=== PATIENT | female | born 1975 | race Caucasian/White ===

== ENCOUNTER 2016-12-28 13:49 | Inpatient (IN) | payer SELFPAY ==
[~2016-12-28] VITALS: Ht 165.1 cm; Wt 95.0 kg
[~2016-12-28 13:49] MED LIST: HYDR-3363 PO; NEUR300C PO; PROZ10CA7 PO
[2016-12-28 15:06] LABS: MEAN CORPUSCULAR HEMOGLOBIN 28.9 pg (27.0-33.0); MEAN CORPUSCULAR HGB CONC 33.9 g/dl (32.0-36.5); MEAN CORPUSCULAR VOLUME 85.4 fl (80.0-96.0); PLATELET COUNT, AUTOMATED 255 10^3/uL (150-450); RED CELL DISTRIBUTION WIDTH 13.1 % (11.5-14.5); WHITE BLOOD COUNT 5.5 10^3/uL (4.0-10.0)
[2016-12-28 15:25] LABS: CONTROL LINE HCG INT CTR LINE PRESENT
[2016-12-28 15:41] LABS: ALBUMIN 3.3 GM/DL (3.2-5.2); ALBUMIN/GLOBULIN RATIO 1.18 (1.00-1.93); ALKALINE PHOSPHATASE 79 U/L (45-117); ALT/SGPT 11 U/L (12-78); ANION GAP 5 MEQ/L (8-16); AST/SGOT 11 U/L (7-37); BILIRUBIN,DIRECT < 0.1 MG/DL (0.0-0.2); BILIRUBIN,TOTAL 0.2 MG/DL (0.2-1.0); BLOOD UREA NITROGEN 12 MG/DL (7-18); CALCIUM LEVEL 8.1 MG/DL (8.5-10.1); CARBON DIOXIDE LEVEL 29 MEQ/L (21-32); CHLORIDE LEVEL 112 MEQ/L (98-107); CREATININE FOR GFR 0.72 MG/DL (0.55-1.02); GLOMERULAR FILTRATION RATE > 60.0 (>58); GLUCOSE, FASTING 84 MG/DL (70-105); POTASSIUM SERUM 4.1 MEQ/L (3.5-5.1); SODIUM LEVEL 146 MEQ/L (136-145); TOTAL PROTEIN 6.1 GM/DL (6.4-8.2)
[2016-12-28 16:08] LABS: METHADONE URINE NEGATIVE (NEGATIVE)
[2016-12-28] MEDS ORDERED: MAALOX 30 ML SUSP *UDC PO PRN (18:30)
[2016-12-28] MEDS ORDERED: MOM 30ML SUSPENSION UDC PO PRN (18:30)
[2016-12-28 22:26] VITALS: BP 118/60
[2016-12-29 07:20] VITALS: BP 111/59
--- NOTE | 2016-12-29 09:20 | HPEPDOC ---
[facility] Medical History & Physical Date of Admission Dec 28, 2016 History and Physical PCP: None ATTENDING: Dr. Genaro Estrella HPI: 41yoF admitted to [facility] for unspecified depressive disorder, being medically examined today. No acute medical complaints today. Denies any fevers, chills, weakness, fatigue, CARTAGENA, CP, SOB, cough, palpitations, abdominal pain, N/V /D or changes in bowel or bladder habits. PMHx: History of hepatitis C, Dr Amor in past. Status post treatment 2009. Hypothyroidism Chronic back pain Bipolar disorder PTSD Anxiety Depression Chronic migraine headache PSHX: Tubal ligation History of thyroid nodules/thyroid nodule FNA. Olga Lidia. Liver biopsy Cholecystectomy Basal cell CA removed from left face SOCHX: Resides in: [facility] Marital Status: Kids: 5 Employment: Unemployed Tobacco use: One pack per day ETOH: Denies Illicit Drugs: Patient states has used "anything I could get my hands on" over the years. Currently marijuana daily. Cocaine and crystal meth on and off. IV Drug Use: States in the past. Tattoos done unprofessionally: Denies FAMHX: Mother: Unknown Father: Unknown Siblings: One brother Alive, well Children: Alive, well Unexpected deaths due to medical reasons: None. ROS: As noted in HPI, otherwise 11pt ROS of systems reviewed and remarkable only for LMP 12/24/16. PE: GEN: 41 yo F, appears stated age. Well-nourished, well developed. No acute distress. Alert and oriented x 3. Pleasant, interactive. HEENT: Normocephalic, atraumatic. Pupils are equal, round, and reactive to light. Extraocular movements are intact. No nystagmus appreciated. Sclera are nonicteric. Conjunctiva without injection. Nose midline. Nasal turbinates without bogginess. EACs both patent BL. TMs both visualized and heard with good cone of light, no bulging or erythema. No facial asymmetry. Moist mucous membranes. Dentition fair. Pharynx pink and moist, no cobblestoning. Neck supple , trachea midline. No lymphadenopathy or thyromegaly appreciated. CHEST: Regular rate and rhythm, +S1, +S2 LUNGS: Clear to auscultation bilaterally. No wheezes, rales, or rhonchi. Breathing appears symmetric and easy. Patient is speaking in full sentences. No accessory muscle use. ABD: Round, soft, non-tender, non-distended. +Bowel sounds throughout. No rebound or guarding. No costovertebral angle tenderness. EXT: Pulses 2+ bilaterally dorsalis pedis and radial. No lower extremity edema appreciated. SKIN: [place], dry, warm. Capillary refill <2sec. No rashes. NEURO: Alert and oriented x 3. Cranial nerves III-XII are intact. No focal deficits appreciated. EKG: pending. A&P: 41yoF admitted to [facility] for unspecified depressive disorder 1. Psych. Plan per Psychiatry. Obtain baseline EKG to assure the safety of psychiatric medications as they can prolong the QT interval. 2. Nicotine dependence. Patch available. 3. History of IVDU. Patient agrees to HIV and hepatitis screening. 4. Follow up. No Primary Care Provider. Will attempt to establish PCP on discharge. 5. Substance use. Per psychiatry. 6. Hypernatremia. Sodium is noted to be 146. Recheck BMP. 7. Staff member Marjan Greco present throughout exam. Vital Signs Vital Signs Date Time Temp Pulse Resp B/P (MAP) Pulse Ox O2 Delivery O2 Flow Rate FiO2 12/29/16 07:20 97.5 65 16 111/59 (76) 12/28/16 22:26 Room Air 12/28/16 21:43 99 Laboratory Data Labs 24H Laboratory Tests 2 12/28/16 14:45: Urine Amphetamines Screen POSITIVEH, Urine Benzodiazepines Screen NEGATIVE, Urine Opiates Screen NEGATIVE, Urine Methadone Screen NEGATIVE, Urine Barbiturates Screen NEGATIVE, Urine Phencyclidine Screen NEGATIVE, Urine Cocaine Metabolite Screen POSITIVEH, Urine Cannabinoids Screen POSITIVEH 12/28/16 14:50: Nucleated Red Blood Cells % (auto) 0.0, Anion Gap 5L, Glomerular Filtration Rate > 60.0, Calcium Level 8.1L, Aspartate Amino Transf (AST/SGOT) 11, Alanine Aminotransferase (ALT/SGPT) 11L, Alkaline Phosphatase 79, Total Bilirubin 0.2, Direct Bilirubin < 0.1, Total Protein 6.1L, Albumin 3.3, Albumin/Globulin Ratio 1.18, Thyroid Stimulating Hormone (TSH) 1.490, Human Chorionic Gonadotropin, Qual NEGATIVE, Salicylates Level < 1.7L, Acetaminophen Level < 2.0L, Ethyl Alcohol Level < 0.003 CBC/BMP Laboratory Tests 12/28/16 14:50 Red Blood Count 4.25, Mean Corpuscular Volume 85.4, Mean Corpuscular Hemoglobin 28.9, Mean Corpuscular Hemoglobin Concent 33.9, Red Cell Distribution Width 13.1 Home Medications No Active Prescriptions or Reported Meds Allergies Coded Allergies: No Known Allergies (Verified Allergy, Unknown, 12/30/05) Amelia López Dec 29, 2016 09:20
[2016-12-29] MEDS: OXcarbazepine 150 MG TAB PO SCH ×2 (13:14→20:28)
[2016-12-29] MEDS: SERTRALINE HCL 25 MG TABLET PO SCH (13:15)
[2016-12-29] MEDS: lamoTRIgine 25 MG TAB PO SCH ×2 (13:15→20:28)
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
[2016-12-29 18:00] VITALS: BP 93/56
[2016-12-29] MEDS: traZODone 50 MG TAB PO PRN (20:28)
--- NOTE | 2016-12-29 21:38 | ECGEPIP ---
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
[2016-12-30 06:59] VITALS: BP 111/66
[2016-12-30 07:44] LABS: ANION GAP 5 MEQ/L (8-16); BLOOD UREA NITROGEN 11 MG/DL (7-18); CALCIUM LEVEL 8.4 MG/DL (8.5-10.1); CARBON DIOXIDE LEVEL 30 MEQ/L (21-32); CHLORIDE LEVEL 108 MEQ/L (98-107); GLOMERULAR FILTRATION RATE > 60.0 (>58); GLUCOSE, FASTING 82 MG/DL (70-105); POTASSIUM SERUM 4.2 MEQ/L (3.5-5.1); SODIUM LEVEL 143 MEQ/L (136-145)
[2016-12-30] MEDS ORDERED: INFLUENZA QUADRIVALENT PF VACCINE 0.5ML SYRINGE (90686) IM ONE (09:00)
[2016-12-30] MEDS: SERTRALINE HCL 25 MG TABLET PO SCH (09:23)
[2016-12-30] MEDS: lamoTRIgine 25 MG TAB PO SCH ×2 (09:23→21:48)
[2016-12-30] MEDS: OXcarbazepine 150 MG TAB PO SCH ×2 (09:24→21:48)
--- NOTE | 2016-12-30 17:53 | MHIPN ---
DATE: 12/30/2016 HISTORY: 41-year-old female with history of bipolar disorder and posttraumatic stress disorder (PTSD) admitted for treatment of depression and suicidal ideation. MEDICATIONS: - Trileptal 75 mg by mouth twice a day - Lamictal 25 mg by mouth twice a day - Zoloft 25 mg by mouth every morning - trazodone 50 mg by mouth nightly as needed for insomnia SUBJECTIVE: "I'm feeling about the same." OBJECTIVE: Patient continues depressed with psychomotor retardation, sad restricted facial expression, interacts minimally with other patients and staff. There is no evidence of psychotic symptoms, no auditory or visual hallucinations or delusions. MENTAL STATUS EXAMINATION: Patient is dressed in [facility]. Patient is cooperative, has fair eye contact. Her speech is slow and monotone. Mood is depressed and anxious. Affect is restricted. No delusions or hallucinations. Memory, attention, and concentration are fair. Patient is able to contract for safety while in the hospital. Insight and judgment is limited. ASSESSMENT: 1. Depression. 2. Posttraumatic stress disorder (PTSD). 3. Suicidal ideation. PLAN: 1. Increase Trileptal to 150 mg by mouth twice a day. 2. Continue Zoloft 25 mg by mouth every morning. 3. Continue Lamictal 25 mg by mouth twice a day. 4. Continue trazodone 50 mg by mouth nightly as needed for insomnia. 5. Continue medication management, individual and group therapy.
[2016-12-30 18:09] VITALS: BP 134/67
[2016-12-30] MEDS: traZODone 50 MG TAB PO PRN (21:48)
[2016-12-30] MEDS: ACETAMINOPHEN TAB 650MG DOSE (2X325MG) PO PRN (21:48)
[2016-12-31 06:32] VITALS: BP 88/52
[2016-12-31] MEDS: lamoTRIgine 25 MG TAB PO SCH ×2 (09:33→20:55)
[2016-12-31] MEDS: SERTRALINE HCL 25 MG TABLET PO SCH (09:33)
[2016-12-31] MEDS: OXcarbazepine 150 MG TAB PO SCH (09:34)
[2016-12-31 18:00] VITALS: BP 117/74
--- NOTE | 2016-12-31 19:51 | IPN ---
DATE: 12/31/2016 HISTORY: 41-year-old female with history of bipolar disorder and posttraumatic stress disorder (PTSD) admitted for treatment of depression and suicidal ideation. MEDICATIONS: - Trileptal 150 mg by mouth twice a day - Lamictal 25 mg by mouth twice a day - Zoloft 25 mg by mouth every morning - trazodone as needed for insomnia SUBJECTIVE: "I'm feeling a little better." OBJECTIVE: Patient continues depressed but has improved slightly since admission. The patient continues with psychomotor retardation, sad, restricted facial expression. She is interacting a little better with other patient's and staff. There is no evidence of psychotic symptoms. No auditory or visual hallucinations or delusions. The patient is compliant with medication and denies side effects. MENTAL STATUS EXAMINATION: Patient is dressed in [facility]. Patient is cooperative, has fair eye contact. Her speech is slow and monotone. Mood is depressed and anxious. Affect is restricted. No delusions or hallucinations. Memory, attention, and concentration are fair. Patient is able to contract for safety. Insight and judgment is improving. ASSESSMENT: 1. Depression. 2. Posttraumatic stress disorder (PTSD). 3. Suicidal ideation. PLAN: 1. Increase Trileptal to 300 mg by mouth twice a day. 2. Continue Zoloft 25 mg by mouth every morning. 3. Continue Lamictal 25 mg by mouth twice a day. 4. Continue trazodone as needed for insomnia. 5. Continue medication management, individual and group therapy.
[2016-12-31] MEDS: OXcarbazepine 300 MG TAB PO SCH (20:55)
[2016-12-31] MEDS: traZODone 50 MG TAB PO PRN (20:56)
[2017-01-01 06:34] VITALS: BP 94/53
[2017-01-01] MEDS: OXcarbazepine 300 MG TAB PO SCH ×2 (09:06→21:01)
[2017-01-01] MEDS: SERTRALINE HCL 25 MG TABLET PO SCH (09:06)
[2017-01-01] MEDS: lamoTRIgine 25 MG TAB PO SCH ×2 (09:06→21:01)
[2017-01-01] MEDS: ACETAMINOPHEN TAB 650MG DOSE (2X325MG) PO PRN (17:18)
[2017-01-01 18:00] VITALS: BP 125/65
[2017-01-01] MEDS: traZODone 50 MG TAB PO PRN (21:01)
--- NOTE | 2017-01-02 00:25 | MHIPN ---
DATE: 01/01/2017 HISTORY: A 41-year-old female with a history of bipolar disorder and post-traumatic stress disorder (PTSD), admitted for treatment of depression and suicidal ideation. MEDICATIONS: - Trileptal 300 mg by mouth twice a day - Zoloft 25 mg by mouth every morning - Lamictal 25 mg by mouth twice a day - trazodone as needed for insomnia SUBJECTIVE: "I'm feeling a little better." OBJECTIVE: The patient is improving slowly. The patient is denying side effects from medications, continues with psychomotor retardation and restricted facial expression, is starting to interact better with other patients and staff. There is no evidence of auditory or visual hallucinations or delusions. The patient is motivated for treatment. Denies side effects. MENTAL STATUS EXAMINATION: The patient is dressed in [facility]. The patient is cooperative, has fair eye contact. Speech is slow and monotone. Mood is depressed and anxious but somewhat improved from admission. Affect is restricted. No delusions or hallucinations. Memory, attention and concentration are fair. The patient is able to contract for safety while in the hospital. Insight and judgment is improving. ASSESSMENT: 1. Depression. 2. Post-traumatic stress disorder. 3. Suicidal ideation. PLAN: 1. Continue Trileptal 300 mg by mouth twice a day. 2. Continue Zoloft 25 mg by mouth every morning. 3. Continue Lamictal 25 mg by mouth twice a day. 4. Continue trazodone as needed for insomnia. 5. Continue medication management, individual and group therapy.
[2017-01-02 06:29] VITALS: BP 120/59
[2017-01-02] MEDS: lamoTRIgine 25 MG TAB PO SCH ×2 (09:17→20:56)
[2017-01-02] MEDS: SERTRALINE HCL 25 MG TABLET PO SCH (09:17)
[2017-01-02] MEDS: OXcarbazepine 300 MG TAB PO SCH ×2 (09:17→20:56)
[2017-01-02 10:40] LABS: HEPATITIS B SURFACE ANTIBODY NEGATIVE (POSITIVE)
[2017-01-02 18:00] VITALS: BP 115/66
[2017-01-02] MEDS: traZODone 50 MG TAB PO PRN (20:56)
[2017-01-02] MEDS: CLOTRIMAZOLE 1% TOPICAL CREAM 30GM TOP SCH (20:56)
--- NOTE | 2017-01-03 02:21 | MHIPN ---
DATE OF SERVICE: 01/02/2017 HISTORY: 41-year-old female with a history of bipolar disorder and posttraumatic stress disorder (PTSD), admitted for treatment of depression and suicidal ideation. MEDICATIONS: - Trileptal 300 mg by mouth twice a day - Zoloft 25 mg by mouth every morning - Lamictal 25 mg by mouth twice a day - trazodone 50 mg by mouth nightly as needed for insomnia SUBJECTIVE: "I'm feeling better." OBJECTIVE: Patient continues improving, is less depressed, less psychomotor retardation. Facial expression is also improving. She is interacting better with other patients and staff. There is no evidence of psychotic symptoms, no auditory or visual hallucinations or delusions. Patient is motivated for treatment, is compliant and denies side effects. MENTAL STATUS EXAMINATION: Patient is dressed in [facility]. Patient is cooperative, has fair eye contact. Speech is slow and monotone, but improving. Mood is depressed and anxious, but also improving. Affect is less restricted. No evidence of delusions or hallucinations. Memory, attention and concentration are fair. Patient is able to contract for safety while in the hospital. Insight and judgment is fair. ASSESSMENT: 1. Depression. 2. Posttraumatic stress disorder. 3. Suicidal ideation. PLAN: 1. Continue Trileptal 300 mg by mouth twice a day. 2. Continue Zoloft 25 mg by mouth every morning. 3. Continue Lamictal 25 mg by mouth twice a day. 4. Continue trazodone 50 mg by mouth nightly as needed for insomnia. 5. Continue medication management, individual and group therapy.
[2017-01-03 06:37] VITALS: BP 100/58
[2017-01-03] MEDS: OXcarbazepine 300 MG TAB PO SCH ×2 (07:56→21:00)
[2017-01-03] MEDS: CLOTRIMAZOLE 1% TOPICAL CREAM 30GM TOP SCH ×2 (07:56→21:02)
[2017-01-03] MEDS: lamoTRIgine 25 MG TAB PO SCH ×2 (07:56→21:00)
[2017-01-03] MEDS: SERTRALINE HCL 25 MG TABLET PO SCH (07:56)
[2017-01-03 10:12] LABS: ALT 16 IU/L (0-40); GGT 12 IU/L (0-60); HAPTOGLOBIN 121 mg/dL (34-200); NECROINFLAM SCORE 0.04 (0.00-0.17); NECROINFLAMM GRADE A0-No activity (.); TOTAL BILIRUBIN 0.1 mg/dL (0.0-1.2)
[2017-01-03 18:00] VITALS: BP 100/54
[2017-01-03] MEDS: ACETAMINOPHEN TAB 650MG DOSE (2X325MG) PO PRN (18:45)
[2017-01-03] MEDS: traZODone 50 MG TAB PO PRN (21:00)
[2017-01-04 06:37] VITALS: BP 100/60
[2017-01-04] MEDS: lamoTRIgine 25 MG TAB PO SCH ×2 (08:15→20:39)
[2017-01-04] MEDS: CLOTRIMAZOLE 1% TOPICAL CREAM 30GM TOP SCH ×2 (08:15→20:39)
[2017-01-04] MEDS: SERTRALINE HCL 25 MG TABLET PO SCH (08:15)
[2017-01-04] MEDS: OXcarbazepine 300 MG TAB PO SCH ×2 (08:15→20:39)
[2017-01-04 18:00] VITALS: BP 130/62
[2017-01-04] MEDS: traZODone 50 MG TAB PO PRN (20:39)
[2017-01-05 06:36] VITALS: BP 109/54
[2017-01-05] MEDS: SERTRALINE HCL 25 MG TABLET PO SCH (08:22)
[2017-01-05] MEDS: lamoTRIgine 25 MG TAB PO SCH (08:22)
[2017-01-05] MEDS: OXcarbazepine 300 MG TAB PO SCH (08:22)
[2017-01-05] MEDS: CLOTRIMAZOLE 1% TOPICAL CREAM 30GM TOP SCH (08:22)
[2017-01-05] MEDS ORDERED: LAMO10TA PO (09:28)
[2017-01-05] MEDS ORDERED: LAMI25TA PO (09:28)
[2017-01-05] MEDS ORDERED: OXCA300T PO (09:29)
[2017-01-05] MEDS ORDERED: TRAZO50TA PO (09:29)
[2017-01-05] MEDS ORDERED: SERT25TA PO (09:29)
--- NOTE | 2017-01-05 17:21 | MHDS ---
DATE OF ADMISSION: 12/28/2016 DATE OF DISCHARGE: 01/05/2017 LEGAL STATUS AT ADMISSION: 9.39 legal status. HISTORY OF PRESENT ILLNESS: A 41-year-old female with history of bipolar disorder and posttraumatic stress disorder (PTSD) admitted to our unit on a 9.39 legal status. According to the chart, the patient came to the emergency department (ED) to be evaluated for depression. During the interview, the patient is very depressed, tearful with psychomotor retardation, very poor eye contact, reports hypersomnia, also hopelessness and helplessness. The patient reports that she has been diagnosed with bipolar disorder but now because the lack of insurance, she has not been having any followup or taking any medication. The patient also states that her manic/hypomanic episodes are very rare. She says that she used to have those more frequently in the past in which she feels, "great," "I felt I could do anything," says that most of the problem was because of lack of judgment call. She says that she would, "shoplift or spend the little money she had inappropriately." She said that she was on Lamictal in the past but she stopped taking it. During the interview today, there is no evidence of auditory or visual hallucinations or delusions. LABORATORY DATA AT ADMISSION: Her CBC was within normal limits. CMP was unremarkable. TSH within normal limits. HCG was negative. Urine drug screen was positive for amphetamines, cocaine, and cannabis. HOSPITAL COURSE: After the first evaluation, the patient was admitted and started on Trileptal that was increased up to 300 mg by mouth twice a day, Zoloft that was kept at 25 mg by mouth every morning due to her diagnosis of bipolar disorder and past history of funmilayo/hypomania, and Lamictal 25 mg by mouth twice a day. The patient was also taking trazodone 50 mg at bedtime for insomnia. With these medications, the patient was stabilized. The patient had no complications during the hospitalization. The patient's mood improved slowly but steadily. By the end of the hospitalization, the patient is euthymic with no auditory or visual hallucination, delusions, suicidal or homicidal ideation. The patient is tolerating well the medication and is motivated for treatment and intends to followup appointments and recommendations. MENTAL STATUS EXAMINATION AT DISCHARGE: The patient is dressed in [facility]. The patient is calm and cooperative. Her speech is clear, coherent with normal rate and is spontaneous. The patient has good eye contact. Mood is euthymic. Affect is appropriate and congruent with mood. The patient is oriented to time, place, person and situation. Maintains attention and concentration correctly. Instant recall, recent and remote memory are intact. Thought processes are coherent, logical, and goal-directed. The patient does not have auditory or visual hallucinations. The patient does not have paranoid, persecutory, somatic, grandiose, or taoist delusions. The patient denies suicidal or homicidal ideation. Insight and judgment are fair. DISCHARGE DIAGNOSES: AXIS I: Bipolar disorder, depressive episode. AXIS II: Deferred. AXIS III: None acute. CONDITION AT DISCHARGE: Stable. No auditory or visual hallucinations. No delusions. No suicidal or homicidal ideation. INSTRUCTIONS TO THE PATIENT: The patient is to continue taking her medications as prescribed and followup appointments. She is advised to maintain absolute sobriety from drugs and alcohol. The patient has scheduled appointment for medication management, individual psychotherapy, and primary care physician.
[2017-01-06 00:06] LABS: HEPATITIS C QUANTITATION HCV Not Detected IU/mL (.)
== END 2017-01-05 12:15 | disposition home or self-care (01) | DRG 753 ==
LOC: M ED 13:49 → M ED INP 18:23 → M PSY 22:20
PROVIDERS: ADMIT Psychiatry & Neurology Psychiatry; ATTEND Psychiatry & Neurology Psychiatry
DX: F31.9 Bipolar disorder, unspecified (principal); F43.10 Post-traumatic stress disorder, unspecified; E03.9 Hypothyroidism, unspecified; Z85.828 Personal history of other malignant neoplasm of skin; Z62.810 Personal history of physical and sexual abuse in childhood; Z91.5 Personal history of self-harm; Z81.1 Family history of alcohol abuse and dependence; M54.9 Dorsalgia, unspecified; G43.719 Chronic migraine without aura, intractable, without status migrainosus; F17.210 Nicotine dependence, cigarettes, uncomplicated; E87.0 Hyperosmolality and hypernatremia; F14.10 Cocaine abuse, uncomplicated; F12.10 Cannabis abuse, uncomplicated; F15.10 Other stimulant abuse, uncomplicated

== ENCOUNTER 2018-02-08 22:31 | Emergency (ER) | payer SELFPAY, MEDICAID, OTHER ==
[2018-02-09] MEDS: LIDOCAINE VISCOUS 2% SOLN 15ML UDC SSP (00:22)
[2018-02-09] MEDS: NORCO, ANEXSIA 5/325MG TABLET (HYDROcodone/ACETAMINOPHEN) PO (00:28)
[2018-02-09] MEDS: AUGMENTIN 875 MG TAB PO (01:00)
[2018-02-09] MEDS: IBUPROFEN 800 MG TAB PO ×2 (01:00)
== END 2018-02-09 01:09 | disposition home or self-care (01) ==
LOC: M ED 22:31
DX: K04.7 Periapical abscess without sinus (principal); E03.9 Hypothyroidism, unspecified; G43.909 Migraine, unspecified, not intractable, without status migrainosus; F17.210 Nicotine dependence, cigarettes, uncomplicated
CPT/HCPCS: 99284

== ENCOUNTER 2020-05-28 13:11 | Emergency (ER) | payer MEDICAID, SELFPAY ==
[~2020-05-28] VITALS: Ht 167.6 cm; Wt 91.6 kg
[~2020-05-28 13:11] MED LIST changes: +AUGM875T28 PO; +HYDR-3715 PO; +IBUP-1022 PO; +LAMI25TA PO; +LAMO100T80 PO; +LIDO2SOL17 PO; +OXCA300T14 PO; +SERT25TA85 PO; +TRAZ1TAB10 PO
[2020-05-28 15:40] LABS: BASO % 0.3 % (0.0-1.0); EOS # 0.1 10^3/uL (0.0-0.5); EOS % 0.5 % (0.0-3.0); HEMATOCRIT 37.9 % (36.0-47.0); HEMOGLOBIN 12.5 g/dl (12.0-15.5); LYMPH # 1.6 10^3/uL (1.5-5.0); LYMPH % 16.1 % (24.0-44.0); MEAN CORPUSCULAR HEMOGLOBIN 27.8 pg (27.0-33.0); MEAN CORPUSCULAR VOLUME 84.4 fl (80.0-96.0); MONO # 1.3 10^3/uL (0.0-0.8); NEUTROPHILS # 6.7 10^3/uL (1.5-8.5); NEUTROPHILS % 69.9 % (36.0-66.0); PLATELET COUNT, AUTOMATED 243 10^3/uL (150-450); RED BLOOD COUNT 4.49 10^6/uL (4.00-5.40); WHITE BLOOD COUNT 9.7 10^3/uL (4.0-10.0)
[2020-05-28 16:06] LABS: ALBUMIN 3.1 GM/DL (3.2-5.2); ALT/SGPT 14 U/L (12-78); BILIRUBIN,DIRECT < 0.1 MG/DL (0.0-0.2); BILIRUBIN,TOTAL 0.2 MG/DL (0.2-1.0); CK-MB VALUE MASS < 1.0 NG/ML (<3.6); CPK CREATINE PHOSPHOKINASE 36 U/L (26-192); LIPASE 75 U/L (73-393); MB/CK RELATIVE INDEX 2.78 (< OR =4); TOTAL PROTEIN 7.1 GM/DL (6.4-8.2); TROPONIN I < 0.02 NG/ML (< 0.10)
[2020-05-28] MEDS ORDERED: NS 1,000 ML IV ONE (16:10)
[2020-05-28] MEDS ORDERED: KETOROLAC 30 MG/ML 1ML VIAL IV ONE (16:10)
--- NOTE | 2020-05-28 16:46 | REP ---
INDICATION: b/l flank pain, urinary urgency, r/o stone. COMPARISON: None. TECHNIQUE: Abdomen/pelvis CT without IV or bowel contrast. FINDINGS: There is no hydronephrosis/hydroureter on the right or the left. No renal, ureteral or bladder calculi are identified on the right or the left. There is mild perinephric stranding on the left but not on the right. There is mild thickening of Gerota's fascia on the left but none on the right. These findings could be posttraumatic or possibly pyelonephritis. No perinephric fluid collections are identified. The visualized lung hopper are unremarkable. The unenhanced hepatic parenchyma, pancreas and spleen are unremarkable. There are surgical clips in the gallbladder fossa. The adrenals are unremarkable. The abdominal aorta is unremarkable. There is no periaortic adenopathy or mass. There is no bowel distention or obstruction. The mesentery is unremarkable. Pelvis: The appendix is unremarkable. The uterus, adnexa and bladder are unremarkable. The pelvic bowel loops are unremarkable. There is a calcification inferior to the right femoral head, medial to the right femoral neck, likely an accessory ossicle. IMPRESSION: There is perinephric stranding surrounding the left kidney and the left yenny fashion is mildly thickened compared to the right. This is nonspecific and could be posttraumatic or possibly pyelonephritis. There are no renal, ureteral or bladder calculi. There is no hydronephrosis. Calcification inferior to the right femoral head, likely an accessory ossicle. <Electronically signed by Joe Mcginnis > 05/28/20 [id number]
[2020-05-28] MEDS ORDERED: cefTRIAXone SOD 1 GM in D5W MINI-BAG PLUS 50 ML IV ONE (16:55)
[2020-05-28] MEDS ORDERED: ACETAMINOPHEN 500 MG TAB PO ONE (17:05)
[2020-05-28] MEDS ORDERED: CIPR500T39 PO (17:36)
[2020-05-28] MEDS ORDERED: IBUP80TA PO (18:40)
[2020-05-28 18:45] VITALS: BP 97/54
== END 2020-05-28 19:24 | disposition home or self-care (01) ==
LOC: M ED 13:11
DX: N10 Acute pyelonephritis (principal); E10.9 Type 1 diabetes mellitus without complications; N39.0 Urinary tract infection, site not specified; R51.9 Headache, unspecified; K21.9 Gastro-esophageal reflux disease without esophagitis; F41.9 Anxiety disorder, unspecified; Z87.448 Personal history of other diseases of urinary system; F17.200 Nicotine dependence, unspecified, uncomplicated; F12.10 Cannabis abuse, uncomplicated
CPT/HCPCS: 74176; 80047; 80076; 81001; 82550; 82553; 83605; 83690; 84484; 84702; 85025; 87086; 96361; 96365; 96366; 96375; 99284; J0696; J1885